=== PATIENT | female | born 1990 | race Caucasian/White ===

== ENCOUNTER 2020-05-03 11:17 | Emergency (ER) | payer MEDICAID ==
[2020-05-03] MEDS ORDERED: IBUPROFEN 800 MG TABLET PO ONE (12:07)
[2020-05-03] MEDS ORDERED: ONDANSETRON 4 MG TAB.RAPDIS PO ONE (12:07)
--- NOTE | 2020-05-03 12:08 | ER Document Report ---
HPI - HPI Time Seen by Provider: 05/03/20 11:51 Onset: Yesterday Onset/Duration: Gradual Quality of pain: Achy Pain Level: 2 Context: Patient presents complaining of sore throat with congestion. Patient denies any fever. Patient does report nausea. Patient denies any vomiting or diarrhea. Patient reports mild cough. Associated Symptoms: Nonproductive cough, Nausea, Sore throat. denies: Fever, Vomiting, Shortness of breath Exacerbated by: Denies Relieved by: Denies Similar symptoms previously: No Recently seen / treated by doctor: No - ROS ROS below otherwise negative: Yes Systems Reviewed and Negative: Yes All other systems reviewed and negative - CONSTITUTIONAL Constitutional: REPORTS: Fever. DENIES: Chills - EENT EENT: REPORTS: Sore Throat, Ear Pain - RESPIRATORY Respiratory: REPORTS: Coughing - URINARY Urinary: DENIES: Dysuria - DERM Skin Color: Normal Skin Problems: None Past Medical History - General Information source: Patient - Social History Smoking Status: Never Smoker Chew tobacco use (# tins/day): No Frequency of alcohol use: Occasional Drug Abuse: None Occupation: [employer] Lives with: Family Family History: Reviewed & Not Pertinent Pulmonary Medical History: Reports: Hx Asthma Psychiatric Medical History: Reports: Hx Anxiety, Hx Depression, Hx Obsessive Compulsive Disorder Past Surgical History: Reports: Hx Orthopedic Surgery - R arm repair Vertical Provider Document - CONSTITUTIONAL Agree With Documented VS: Yes Exam Limitations: No Limitations General Appearance: WD/WN, No Apparent Distress - HEENT HEENT: Atraumatic, Normocephalic, Pharyngeal Tenderness, Pharyngeal Erythema. negative: Pharyngeal Exudate Notes: Clear rhinorrhea - NECK Neck: Normal Inspection, Supple. negative: Lymphadenopathy-Left, Lymphadenopathy-Right - RESPIRATORY Respiratory: Breath Sounds Normal, No Respiratory Distress - CARDIOVASCULAR Cardiovascular: Regular Rate, Regular Rhythm, No Murmur - BACK Back: Normal Inspection - MUSCULOSKELETAL/EXTREMETIES Musculoskeletal/Extremeties: MAEW - NEURO Level of Consciousness: Awake, Alert, Appropriate Motor/Sensory: No Motor Deficit - DERM Integumentary: Warm, Dry, No Rash Course - Re-evaluation Re-evalutation: 05/03/20 12:06 The patient was evaluated during the global Covid 19 pandemic, and that diagnosis was suspected/considered upon their initial presentation. Their evaluation, treatment and testing was consistent with current guidelines for patients who present with complaints or symptoms that may be related to Covid 19. Patient with negative rapid strep test, throat culture is pending at this time. No concern for [employer]. Will Covid test patient at this time. Patient presents with upper respiratory symptoms worrisome for possible Covid 19. Patient does not have emergency worrying symptoms such as difficulty breathing, shortness of breath, chest pain, pressure, confusion or cyanosis. Patient appears suitable for discharge as they are not of an advanced age, do not have any chronic medical conditions such as diabetes, CAD, immune deficiency, chronic lung disease or chronic kidney disease. Patient's vital signs are stable and patient is nontoxic in appearance. Good return precautions have been discussed with patient, patient verbalized understanding and is agreeable with discharge plan of care at this time. - Vital Signs Vital signs: Temp Pulse Resp BP Pulse Ox 99.2 F 86 107/62 98 05/03/20 11:22 05/03/20 11:22 05/03/20 11:22 05/03/20 11:22 - Laboratory Results Critical Laboratory Results Reviewed: No Critical Results - Radiology Results Critical Radiology Results Reviewed: No Critical Results Discharge - Discharge Clinical Impression: Sore throat Upper respiratory infection Qualifiers: URI type: unspecified URI Qualified Code(s): J06.9 - Acute upper respiratory infection, unspecified Condition: Stable Disposition: HOME, SELF-CARE Instructions: COVID-19 Guidance for Persons Under Investigation, Sore Throat ([facility]), Upper Respiratory Illness ([facility]) Additional Instructions: Return immediately for any new or worsening symptoms Followup with your primary care provider, call tomorrow to make a followup nadeem ointment Culture is pending, we will call if you need any different treatment Prescriptions: Naproxen [Naprosyn 250 Nmg Tablet] 1 tab PO BID #14 tablet Ondansetron [Zofran Odt 4 mg Tablet] 1 tab PO Q6H #15 tab.rapdis Forms: Return to Work Referrals: JERAMY,NO [Primary Care Provider] - Follow up as needed
[2020-05-03 12:30] VITALS: BP 105/65
== END 2020-05-03 12:31 | disposition home or self-care (01) ==
LOC: ER 11:17
DX: J06.9 Acute upper respiratory infection, unspecified (principal); J02.9 Acute pharyngitis, unspecified; R11.0 Nausea; Z20.822 Contact with and (suspected) exposure to COVID-19
CPT/HCPCS: 99283; 36415; 87070; 87880; 87635; 87077; S0119; C9803